=== PATIENT | female | born 1975 | race Caucasian/White ===

== ENCOUNTER 2018-06-20 09:28 | Emergency (ER) | payer MEDICAID ==
[~2018-06-20] VITALS: Ht 157.5 cm; Wt 101.2 kg
[2018-06-20] MEDS ORDERED: NACL 0.9% 1,000 ML IV ONE (09:38)
[2018-06-20 09:40] VITALS: BP_SYST 147
[2018-06-20] MEDS ORDERED: ONDANSETRON HCL 4 MG/2 ML VIAL IVP ONE (09:45)
[2018-06-20 10:34] LABS: EOSINOPHILS # (AUTO) 0.2 K/uL (0.0-0.4); LYMPHOCYTES # (AUTO) 1.1 K/uL (1.0-5.5); MONOCYTES # (AUTO) 0.4 K/uL (0.0-1.0)
[2018-06-20 10:39] LABS: BASOPHILS % (AUTO) 0.5 % (0.0-2.0); EOSINOPHILS % (AUTO) 3.1 % (0.0-4.0); HEMATOCRIT 41.1 % (36-48); HEMOGLOBIN 13.7 g/dL (12.0-16.0); LYMPHOCYTES % (AUTO) 18.8 % (20.5-51.5); MEAN CORPUSCULAR HEMOGLOBIN 28 pg (27-31); MEAN CORPUSCULAR HGB CONC 33 % (32-36); MEAN CORPUSCULAR VOLUME 85 fL (79.0-98.0); MONOCYTES % (AUTO) 6.1 % (1.7-9.3); NEUTROPHILS # (AUTO) 4.1 K/uL (1.8-7.7); NEUTROPHILS % (AUTO) 71.5 % (40.0-70.0); PLATELET COUNT (AUTO) 202 K/uL (130-430); RED BLOOD CELL COUNT(AUTO) 4.82 MIL/uL (4.2-6.2); RED CELL DISTRIBUTION WIDTH 13.4 % (9.0-15.0); WHITE BLOOD COUNT (AUTO) 5.8 K/uL (4.8-10.8)
[2018-06-20 10:48] LABS: ALBUMIN 3.5 g/dL (3.4-4.8); CALCIUM 8.9 mg/dL (8.4-11.0); CREATININE 0.67 mg/dL (0.55-1.30); POTASSIUM 3.7 mmol/L (3.5-5.1); TOTAL BILIRUBIN 0.3 mg/dL (0.0-1.0)
[2018-06-20 11:10] LABS: BILIRUBIN,URINE NEGATIVE (NEGATIVE); BLOOD, URINE NEGATIVE (NEGATIVE); CLARITY/URINE CLEAR (CLEAR); COLOR,URINE YELLOW (YELLOW); GLUCOSE,URINE NEGATIVE (NEGATIVE); KETONES,URINE TRACE (NEGATIVE); LEUKOCYTE ESTERASE ,URINE NEGATIVE (NEGATIVE); NITRITE, URINE NEGATIVE (NEGATIVE); PH,URINE 5.5 (5.0-8.0); PROTEIN URINE NEGATIVE (NEGATIVE); UROBILINOGEN,URINE 0.2 (0.2-1.0)
[2018-06-20 11:42] VITALS: BP_SYST 126
== END 2018-06-20 11:40 | disposition home or self-care (01) ==
LOC: SED 09:28
DX: O99.511 Diseases of the respiratory system complicating pregnancy, first trimester (principal); J11.1 Influenza due to unidentified influenza virus with other respiratory manifestations; O26.892 Other specified pregnancy related conditions, second trimester; H66.91 Otitis media, unspecified, right ear; M79.10 Myalgia, unspecified site; R03.0 Elevated blood-pressure reading, without diagnosis of hypertension; Z3A.01 Less than 8 weeks gestation of pregnancy
CPT/HCPCS: 36415; 80053; 81003; 81025; 82150; 83690; 86710; 85025; 96374; 99283; J2405

== ENCOUNTER 2019-01-26 04:30 | Inpatient (IN) | payer MEDICAID ==
[~2019-01-26] VITALS: Ht 160 cm; Wt 104.3 kg
[2019-01-26] MEDS: LR 1,000 ML IV SCH ×2 (04:20→05:30)
[2019-01-26] MEDS ORDERED: OXYTOCIN/0.9 % SODIUM CHLORIDE 1,000 ML IV SCH (04:45)
[2019-01-26] MEDS ORDERED: NALBUPHINE HCL 10 MG/ML AMP IVP PRN (04:45)
[2019-01-26] MEDS ORDERED: TERBUTALINE SULFATE 1 MG/ML VIAL SUBCUT ONE (04:45)
[2019-01-26 05:07] VITALS: BP_SYST 115
[2019-01-26 05:38] LABS: EOSINOPHILS # (AUTO) 0.1 K/uL (0.0-0.4); HEMOGLOBIN 12.2 g/dL (12.0-16.0); LYMPHOCYTES # (AUTO) 1.9 K/uL (1.0-5.5); MEAN CORPUSCULAR HEMOGLOBIN 30 pg (27-31); MEAN CORPUSCULAR HGB CONC 34 % (32-36); MONOCYTES # (AUTO) 0.8 K/uL (0.0-1.0); RED BLOOD CELL COUNT(AUTO) 4.07 MIL/uL (4.2-6.2); RED CELL DISTRIBUTION WIDTH 14.3 % (9.0-15.0)
[2019-01-26 05:46] LABS: BASOPHILS % (AUTO) 0.5 % (0.0-2.0); EOSINOPHILS % (AUTO) 0.9 % (0.0-4.0); LYMPHOCYTES % (AUTO) 18.9 % (20.5-51.5); MEAN CORPUSCULAR VOLUME 89 fL (79.0-98.0); MONOCYTES % (AUTO) 8.2 % (1.7-9.3); NEUTROPHILS # (AUTO) 7.1 K/uL (1.8-7.7); NEUTROPHILS % (AUTO) 71.5 % (40.0-70.0); PLATELET COUNT (AUTO) 180 K/uL (130-430); WHITE BLOOD COUNT (AUTO) 9.9 K/uL (4.8-10.8)
[2019-01-26] MEDS ORDERED: ONDANSETRON HCL 4 MG/2 ML VIAL IVP ONE (11:15)
[2019-01-26] MEDS ORDERED: DIPHENHYDRAMINE INJ 50 MG/ML VIAL IM ONE (11:15)
[2019-01-26] MEDS ORDERED: MORPHINE SULFATE 10MG/10ML PF AMP EP ONE (11:15)
[2019-01-26] MEDS ORDERED: LR 1,000 ML IV.SOLN IV ONE (11:15)
[2019-01-26] MEDS ORDERED: ePHEDrine sulfate 50 MG/ML VIAL IM ONE (11:15)
[2019-01-26] MEDS ORDERED: fentaNYL CITRATE/PF 100 MCG/2 ML AMP IVP ONE (11:15)
[2019-01-26] MEDS ORDERED: LIDOCAINE 2%, 20 ML MDV IM ONE (11:15)
[2019-01-26] MEDS: MISOPROSTOL 100 MCG TABLET (CYTOTEC) PO PRN ×2 (18:35→22:30)
[2019-01-27] MEDS: LR 1,000 ML IV SCH ×4 (01:17→20:00)
[2019-01-27] MEDS: MISOPROSTOL 100 MCG TABLET (CYTOTEC) PO PRN (03:15)
[2019-01-27] MEDS ORDERED: FENT2mCg/mL-ROPIVA0.2%/NS EPID 200 ML EP SCH (04:00)
[2019-01-27] MEDS ORDERED: fentaNYL CITRATE/PF 100 MCG/2 ML AMP ONE (04:03)
[2019-01-27] MEDS ORDERED: ROPIVACAINE HCL/PF 0.2% 200 ML ONE (04:03)
[2019-01-27] MEDS ORDERED: TERBUTALINE SULFATE 1 MG/ML VIAL SUBCUT ONE (07:35)
[2019-01-27] MEDS ORDERED: TERBUTALINE SULFATE 1 MG/ML VIAL ONE (07:48)
[2019-01-27] MEDS ORDERED: OXYTOCIN/0.9 % SODIUM CHLORIDE 1,000 ML IV ONE (11:15)
[2019-01-27] MEDS ORDERED: ANUSOL 1 EA SUPP.RECT (PREPARATION H) RC PRN (11:15)
[2019-01-27] MEDS ORDERED: HYDROcodone/ACETAMIN 5-325 MG TAB (NORCO/ VICODIN) PO PRN (11:15)
[2019-01-27] MEDS ORDERED: BISACODYL 10 MG/SUPPOSITORY RC PRN (11:15)
[2019-01-27] MEDS ORDERED: MORPHINE SULFATE 10 MG/ML VIAL IVP PRN (11:15)
[2019-01-27] MEDS ORDERED: LANOLIN 7 GM OINT. TP PRN (11:15)
[2019-01-27] MEDS ORDERED: CEFAZOLIN 2 GM IVPB PREMIX 50 ML IV ONE (11:21)
[2019-01-27] MEDS ORDERED: NALOXONE HCL 1 MG in NACL 0.9% 1,000 ML IV PRN ×4 (11:49)
[2019-01-27] MEDS ORDERED: LR 1,000 ML IV SCH (11:49)
[2019-01-27] MEDS ORDERED: ONDANSETRON HCL 4 MG/2 ML VIAL IVP PRN (12:00)
[2019-01-27] MEDS ORDERED: MORPHINE SULFATE 10MG/10ML PF AMP SP SCH (12:00)
[2019-01-27] MEDS ORDERED: HYDROmorphone 1 MG INJ. 1 MG/ML AMPUL IVP PRN (12:00)
[2019-01-27] MEDS ORDERED: HYDROmorphone 2 MG/ML VIAL IVP PRN ×2 (12:00)
[2019-01-27] MEDS ORDERED: DIPHENHYDRAMINE HCL 50 MG CAPSULE PO PRN (12:00)
[2019-01-27] MEDS ORDERED: DIPHENHYDRAMINE INJ 50 MG/ML VIAL IVP PRN (12:00)
[2019-01-27] MEDS ORDERED: NALOXONE HCL 0.4 MG/ML AMP (NARCAN) IVP PRN ×3 (12:00)
[2019-01-27] MEDS ORDERED: MEPERIDINE HCL/PF 25 MG/ML DISP.SYRIN IVP PRN ×2 (12:00)
[2019-01-27 12:10] VITALS: BP_SYST 127
--- NOTE | 2019-01-27 17:00 | NUR ---
Dietitian Recommendations * Recommend continuing a regular diet. 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 Signed: 01/27/19 at 1701 by Kelly RASHID <Co-Signature Required> Co-Signed: 01/27/19 at [address] Addendum: 01/27/19 at 1702 by Kelly RASHID Amended: Links added.
[2019-01-28 06:24] LABS: BASOPHILS % (AUTO) 0.1 % (0.0-2.0); EOSINOPHILS % (AUTO) 0.4 % (0.0-4.0); HEMATOCRIT 30.3 % (36-48); HEMOGLOBIN 10.1 g/dL (12.0-16.0); LYMPHOCYTES # (AUTO) 1.6 K/uL (1.0-5.5); MEAN CORPUSCULAR HEMOGLOBIN 30 pg (27-31); MEAN CORPUSCULAR HGB CONC 34 % (32-36); MEAN CORPUSCULAR VOLUME 89 fL (79.0-98.0); MONOCYTES # (AUTO) 0.8 K/uL (0.0-1.0); MONOCYTES % (AUTO) 7.3 % (1.7-9.3); NEUTROPHILS # (AUTO) 8.7 K/uL (1.8-7.7); NEUTROPHILS % (AUTO) 78.2 % (40.0-70.0); PLATELET COUNT (AUTO) 141 K/uL (130-430); RED BLOOD CELL COUNT(AUTO) 3.39 MIL/uL (4.2-6.2); RED CELL DISTRIBUTION WIDTH 14.8 % (9.0-15.0); WHITE BLOOD COUNT (AUTO) 11.1 K/uL (4.8-10.8)
[2019-01-28] MEDS: LR 1,000 ML IV SCH (07:00)
[2019-01-28] MEDS: IBUPROFEN 600 MG TABLET PO SCH (12:06)
[2019-01-28] MEDS: DOCUSATE SODIUM 100 MG CAPSULE PO PRN (20:00)
[2019-01-28] MEDS: SIMETHICONE 80 MG TAB.CHEW PO PRN (20:01)
[2019-01-28] MEDS: HYDROcodone/ACETAMIN 5-325 MG TAB (NORCO/ VICODIN) PO PRN (22:10)
[2019-01-29] MEDS: IBUPROFEN 600 MG TABLET PO SCH ×3 (06:00→12:05)
[2019-01-29] MEDS: HYDROcodone/ACETAMIN 5-325 MG TAB (NORCO/ VICODIN) PO PRN (12:05)
[2019-01-29] MEDS: SIMETHICONE 80 MG TAB.CHEW PO PRN (12:05)
[2019-01-29] MEDS: DOCUSATE SODIUM 100 MG CAPSULE PO PRN (12:05)
== END 2019-01-29 14:25 | disposition home or self-care (01) | DRG 540 ==
LOC: SPU 04:30
PROVIDERS: ADMIT Obstetrics & Gynecology; ATTEND Obstetrics & Gynecology
PROC: 10D00Z1 Extraction of Products of Conception, Low, Open Approach (ICD-10-PCS; principal; 2019-01-27 11:00)
DX: O77.9 Labor and delivery complicated by fetal stress, unspecified (principal); O10.92 Unspecified pre-existing hypertension complicating childbirth; Z3A.38 38 weeks gestation of pregnancy; Z37.0 Single live birth
CPT/HCPCS: 36415; 76815; 85025; 86592; 86886; 86900; 86901; A4618; J0690; J1200; J2001; J2274; J2300; J2310; J2405; J2590; J3010; J3105; J7030; J7120